=== PATIENT | male | born 1985 | race Caucasian/White ===

== ENCOUNTER 2021-05-18 01:40 | Emergency (ER) | payer SELFPAY ==
[~2021-05-18] VITALS: Ht 170.2 cm; Wt 99.8 kg
[2021-05-18 01:50] VITALS: BP 142/94
[2021-05-18] MEDS ORDERED: LIDOCAINE/EPI 1% 1:100000 20 ML VIAL INJ ONE (04:10)
[2021-05-18] MEDS ORDERED: AMOXIL/CLAVULANATE 875/125 MG 1 TAB PO ONE (04:10)
[2021-05-18] MEDS ORDERED: AMOX-1000 PO (05:14)
[2021-05-18] MEDS ORDERED: amo (05:14)
[2021-05-18] MEDS ORDERED: BACI1PAC6 TP (05:15)
--- NOTE | 2021-05-18 05:40 | NUR ---
Patient discharged with v/s stable. Written and verbal after care instructions given and explained. Patient alert, oriented and verbalized understanding of instructions. Ambulatory with steady gait. All questions addressed prior to discharge. ID band removed. Patient advised to follow up with PMD. Rx of AUGMENTIN AND BACITRACIN OINT given. Patient educated on indication of medication including possible reaction and side effects. Opportunity to ask questions provided and answered.
== END 2021-05-18 05:40 | disposition home or self-care (01) ==
LOC: MED 01:40
DX: S01.512A Laceration without foreign body of oral cavity, initial encounter (principal); X58.XXXA Exposure to other specified factors, initial encounter; Y93.89 Activity, other specified; Y92.89 Other specified places as the place of occurrence of the external cause; Y99.8 Other external cause status
CPT/HCPCS: 12011; 90471; 90715; 99283; J2001

== ENCOUNTER 2021-05-25 17:06 | Emergency (ER) | payer SELFPAY ==
[~2021-05-25] VITALS: Ht 170.2 cm; Wt 99.8 kg
[~2021-05-25 17:06] MED LIST: AMOX-1000 PO; BACI1PAC6 TP; amo
[2021-05-25 17:21] VITALS: BP 119/79
[2021-05-25 17:48] VITALS: BP 114/72
--- NOTE | 2021-05-25 17:48 | NUR ---
NO NURSING INTERVENTIONS DONE, NO NURSING INTERVENTIONS NEEDED.
--- NOTE | 2021-05-25 17:49 | NUR ---
Patient discharged with v/s stable. Written and verbal after care instructions given and explained SUTURE REMOVAL. Patient verbalized understanding. Ambulatory with steady gait. All questions addressed prior to discharge. Advised to follow up with PMD.
== END 2021-05-25 17:49 | disposition home or self-care (01) ==
LOC: MED 17:06
DX: S01.511D Laceration without foreign body of lip, subsequent encounter (principal); Z48.00 Encounter for change or removal of nonsurgical wound dressing; X58.XXXD Exposure to other specified factors, subsequent encounter
CPT/HCPCS: 99282